=== PATIENT | male | born 1985 | race Caucasian/White ===

== ENCOUNTER → 2023-11-29 15:13 | Outpatient (REF) | payer OTHER, SELFPAY | LOC: RAD 15:13 | PROVIDERS: ATTENDING PHYSICIAN Family Medicine | DX: M79.641 Pain in right hand (principal); R29.898 Other symptoms and signs involving the musculoskeletal system; R20.2 Paresthesia of skin | CPT/HCPCS: 72050 ==

== ENCOUNTER → 2024-02-01 07:13 | Outpatient (REF) | payer OTHER, SELFPAY | LOC: MRI 3T 07:13 | PROVIDERS: ATTENDING PHYSICIAN Family Medicine; FAMILY PHYSICIAN Physician Assistant | DX: M54.12 Radiculopathy, cervical region (principal) | CPT/HCPCS: 72141 ==